=== PATIENT | female | born 1980 | race Caucasian/White ===

== ENCOUNTER 2019-12-21 12:49 | Emergency (ER) | payer MEDICAID ==
[~2019-12-21] VITALS: Ht 167.6 cm; Wt 86.4 kg
[2019-12-21] MEDS: MethylPREDNISolone SOD SUCC 125 MG/2 ML VIAL IVP ONE (15:53)
[2019-12-21] MEDS: ONDANSETRON HCL 4 MG/2 ML VIAL IVP ONE ×2 (15:54→17:53)
[2019-12-21] MEDS: DiphenhydrAMINE HCL 50 MG/ML VIAL IVP STA (15:54)
[2019-12-21] MEDS: SODIUM CHLORIDE 0.9% 1,000 ML IV ONE (16:35)
[2019-12-21] MEDS: KETOROLAC TROMETHAMINE 30 MG/ML VIAL IVP ONE (16:35)
[2019-12-21 16:50] LABS: BASOPHILS % (AUTO) 0.4 % (0.0-2.0); EOSINOPHILS % (AUTO) 0.2 % (1.0-6.0); HEMATOCRIT 45.6 % (36-46); HEMOGLOBIN 15.6 g/dL (12.0-16.0); MEAN CORPUSCULAR HGB CONC 34.2 G/dL (31.0-37.0); MEAN CORPUSCULAR VOLUME 88 fL (80-100); MONOCYTES # (AUTO) 0.6 K/uL (0.1-1.0); MONOCYTES % (AUTO) 4.2 % (2.0-9.0); NEUTROPHILS # (AUTO) 11.5 K/uL (1.8-7.7); NEUTROPHILS % (AUTO) 81.2 % (40.0-70.0); PLATELET COUNT (AUTO) 458 K/uL (150-450); RED CELL DISTRIBUTION WIDTH 12.9 % (11.5-14.5)
[2019-12-21 17:34] LABS: CHLORIDE 101 mmol/L (98-107); POTASSIUM 3.6 mmol/L (3.5-5.1); SODIUM SERUM 140 mmol/L (136-145)
[2019-12-21 17:36] LABS: ALANINE AMINOTRANSFERASE 23 U/L (12-78); ALBUMIN 3.1 g/dL (3.4-5.0); ALKALINE PHOSPHATASE 93 U/L (46-116); ANION GAP 7 mmol/L (8-16); ASPARTATE AMINOTRANSFERASE 17 U/L (15-37); BILIRUBIN,TOTAL 0.4 mg/dL (0.1-1.0); CARBON DIOXIDE 32 mmol/L (22-29); CREATININE 0.88 mg/dL (0.60-1.30); GLOMERULAR FILTR. RATE CALC > 60 mL/min (>60); GLUCOSE,RANDOM 176 mg/dL (70-110); HCG,QUANTITATIVE < 1 mIU/mL (0-6); LIPASE 70 U/L (73-393); TOTAL PROTEIN, SERUM 7.7 g/dL (6.4-8.2); UREA NITROGEN, BLOOD 10 mg/dL (7-18)
[2019-12-21] MEDS: SULFAMETHOX/TRIMETH DS 800-160 MG/TABLET PO ONE (17:54)
[2019-12-21] MEDS: CEPHALEXIN MONOHYDRATE 500 MG CAPSULE PO ONE (17:54)
[2019-12-21 18:45] VITALS: BP 119/79
== END 2019-12-21 19:19 | disposition home or self-care (01) ==
LOC: EMS 12:53
DX: L02.31 Cutaneous abscess of buttock (principal); R11.2 Nausea with vomiting, unspecified; R19.7 Diarrhea, unspecified; L50.9 Urticaria, unspecified; F17.210 Nicotine dependence, cigarettes, uncomplicated
CPT/HCPCS: 36415; 80053; 83690; 84702; 85025; 96361; 96374; 96375; 96376; 99285; J1200; J1885; J2405; J2930; J7030